=== PATIENT | male | born 1985 ===

== ENCOUNTER 2017-10-13 16:51 | Emergency (ER) | payer BC ==
[2017-10-13 17:02] VITALS: BP 135/77
[2017-10-13] MEDS ORDERED: Acetaminophen/HYDROcodone 325-5 MG Tab PO ONE (17:13)
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
[2017-10-13] MEDS ORDERED: Acetaminophen/oxyCODONE 325-5 MG Tab PO ONE (20:18)
--- NOTE | 2017-10-14 13:11 | CR ---
Left knee: Four views of the left knee were obtained. Comparison: No previous knee exam. Medial and lateral joint spaces are maintained in height. No joint effusion is seen. No fracture or other bony abnormality is identified. Impression: 1. No abnormality is seen on left knee exam. Diagnostic code #1
--- NOTE | 2017-10-14 13:11 | CR ---
Right knee: Six radiographs of the right knee were obtained. Comparison: No previous study. Medial and lateral joint spaces are maintained in height. Cyst is noted within the subchondral patella. Minimal osteophyte is noted off the superior patella. Small avulsion fracture off the anterior tibial spine not well seen on plain film exam as seen on subsequent CT study. No additional fracture or other abnormality is seen. Impression: 1. Incidental findings as noted above. Diagnostic code #2
--- NOTE | 2017-10-14 13:11 | CR ---
Left elbow: Four views of left elbow were obtained. Comparison: No prior study. Fracture is identified within the radial neck. Minimal angulation is seen. Joint effusion is noted. No additional fracture or other abnormality is appreciated. Impression: 1. Slightly angulated radial neck fracture. Joint effusion. Diagnostic code #3
--- NOTE | 2017-10-15 11:33 | CT ---
CT right knee Technique: Multiple axial sections were obtained through the right knee. Reconstructed coronal and sagittal images were reviewed. Comparison: No prior knee exam. Findings: Small joint effusion is seen as well as small amount of fat within this patellar pouch. Small avulsion fracture identified off the anterior tibial spine at the attachment of the anterior cruciate ligament. Cystic change noted within the patella with mild osteophytes. No additional fracture or other abnormality is appreciated. Impression: 1. Small avulsion fracture felt to be present at the attachment of the anterior cruciate ligament to the tibial spine. 2. Small lipohemarthrosis within the superior patellar pouch. 3. Degenerative change within the patella. Diagnostic code #3 Agree with preliminary report issued by [facility] ([facility] preliminary report dictated on 10/13/17, 8:14 PM Central Time) JOSELINE
== END 2017-10-13 20:32 | disposition home or self-care (01) ==
LOC: JD.ED 16:51
DX: S82.114A Nondisplaced fracture of right tibial spine, initial encounter for closed fracture (principal); S52.125A Nondisplaced fracture of head of left radius, initial encounter for closed fracture; S83.91XA Sprain of unspecified site of right knee, initial encounter; S80.212A Abrasion, left knee, initial encounter; S80.211A Abrasion, right knee, initial encounter; V29.9XXA Motorcycle rider (driver) (passenger) injured in unspecified traffic accident, initial encounter
CPT/HCPCS: 29105; 73080; 73564; 73700; 99284; A9270